=== PATIENT | female | born 1965 | race African-American/Black ===

== ENCOUNTER 2019-08-28 11:21 | Emergency (ER) | payer MEDICAID ==
[~2019-08-28] VITALS: Ht 172.7 cm; Wt 75.0 kg
[~2019-08-28 11:21] MED LIST: AMLO5TAB88 PO; CLOP75TA4 PO; LIP40 PO; LOSA50TA3 PO
[2019-08-28 11:35] VITALS: BP 161/115
[2019-08-28] MEDS ORDERED: KETOROLAC 60MG/2ML VIAL IM ONE (11:45)
[2019-08-28] MEDS ORDERED: ONDANSETRON 4MG ODT PO ONE (11:45)
[2019-08-28] MEDS ORDERED: HYDROCODONE/ACETAMINOPHEN 5/325MG TABLET PO ONE (11:45)
== END 2019-08-28 12:11 | disposition home or self-care (01) ==
LOC: ER 11:21
DX: M54.40 Lumbago with sciatica, unspecified side (principal); G89.29 Other chronic pain; Z86.73 Personal history of transient ischemic attack (TIA), and cerebral infarction without residual deficits; I10 Essential (primary) hypertension; E11.9 Type 2 diabetes mellitus without complications; E78.00 Pure hypercholesterolemia, unspecified; Z79.899 Other long term (current) drug therapy
CPT/HCPCS: 96372; 99283; J1885; Q0162